=== PATIENT | female | born 1955 | race Caucasian/White ===

== ENCOUNTER → 2017-05-27 | Outpatient (CLI) | payer MEDICAID ==
[~2017-05-27] MED LIST: FISH OIL1000 MG PO; HYZAAR 50-12.51 EACH PO; HYZAAR1 TA1 PO; LEXAPRO 20 MG T20 MG PO; LOSARTAN POTASS1 TAB PO; OPTIMUM VITAMIN1 TAB PO; PRILOSEC20 M1 PO; VENLAFAXINE H37.5 M2 PO; VITAMIN E 400400 IU PO; ZIAC 5 MG-6.251 TAB PO
[2017-05-27 13:33] LABS: HEMOGLOBIN 12.7 g/dL (12.2-16.2); LYMPH # 1.5 K/mm3 (0.7-4.5); LYMPH % 25.9 % (10-50.0)
[2017-05-27 13:42] LABS: BUN 12 mg/dL (7-18)
[2017-05-27 13:43] LABS: GFR (ESTIMATED) 50 ML/MIN (59-)
== END ==
LOC: CARL-LAB 08:02
PROVIDERS: Internal Medicine Adolescent Medicine
DX: I10 Essential (primary) hypertension (principal); E53.8 Deficiency of other specified B group vitamins; R53.83 Other fatigue; R53.81 Other malaise